=== PATIENT | female | born 1990 | race Native Hawaiian/Other Pacific Islander ===

== ENCOUNTER 2016-09-19 13:44 | Emergency (ER) | payer OTHER ==
[~2016-09-19] VITALS: Ht 162.6 cm; Wt 63.5 kg
[2016-09-19 14:29] LABS: PLATELET COUNT 289 K/uL (152-353)
[2016-09-19 15:18] VITALS: BP 124/74; TEMP 97.6
== END 2016-09-19 15:18 | disposition home or self-care (01) ==
LOC: ED 13:44
DX: S93.492A Sprain of other ligament of left ankle, initial encounter (principal); S02.5XXA Fracture of tooth (traumatic), initial encounter for closed fracture; K02.9 Dental caries, unspecified
CPT/HCPCS: 36415; 85027; 99283

== ENCOUNTER 2021-08-31 05:45 | Emergency (ER) | payer OTHER ==
[~2021-08-31] VITALS: Ht 167.6 cm; Wt 90.7 kg
[2021-08-31 05:54] VITALS: BP 132/73; TEMP 98.1
== END 2021-08-31 07:30 | disposition home or self-care (01) ==
LOC: ED 05:45
DX: M54.59 Other low back pain (principal); M25.561 Pain in right knee; V47.5XXA Car driver injured in collision with fixed or stationary object in traffic accident, initial encounter; Y92.410 Unspecified street and highway as the place of occurrence of the external cause
CPT/HCPCS: 96372; 99283; J1885

== ENCOUNTER 2021-12-23 19:35 | Emergency (ER) | payer OTHER ==
[~2021-12-23] VITALS: Ht 167.6 cm; Wt 90.7 kg
[2021-12-23 19:59] VITALS: BP 137/84; TEMP 97.8
== END 2021-12-23 22:00 | disposition home or self-care (01) ==
LOC: ED 19:35
DX: M19.071 Primary osteoarthritis, right ankle and foot (principal)
CPT/HCPCS: 96372; 99282; J1885